=== PATIENT | female | born 1985 | race Two or more races ===

== ENCOUNTER 2017-02-18 12:32 | Day surgery (SDC) | payer OTHER | END 2017-02-18 20:50 | disposition home or self-care (01) | LOC: CIR.AMB 12:32 | DX: O02.1 Missed abortion (principal); Z3A.01 Less than 8 weeks gestation of pregnancy ==

== ENCOUNTER 2019-05-06 09:12 | Emergency (ER) | payer OTHER ==
[~2019-05-06] VITALS: Ht 152.4 cm; Wt 68.0 kg
[2019-05-06] MEDS ORDERED: ALLEGRA-D 12 H1 EACH (09:28)
== END 2019-05-06 14:15 | disposition home or self-care (01) ==
LOC: ER 09:12
DX: J06.9 Acute upper respiratory infection, unspecified (principal)